=== PATIENT | male | born 1980 | race Native Hawaiian/Other Pacific Islander ===

== ENCOUNTER 2022-03-28 12:56 | Inpatient (IN) | payer BC, OTHER ==
[2022-03-28] MEDS ORDERED: SODIUM CHLORIDE 0.9% 1,000 ML IV STA (17:50)
[2022-03-28] MEDS ORDERED: THIAMINE 100 MG/ML 2 ML VIAL IM STA (17:50)
[2022-03-28] MEDS ORDERED: PHENobarbital SODIUM 130 MG/ML 1 ML VIAL IM STA (17:52)
[2022-03-28] MEDS ORDERED: LORazepam 2 MG/ML INJ IV STA (17:52)
--- NOTE | 2022-03-28 17:57 | ED ---
General Adult HPI - General Chief complaint: Alcohol Stated complaint: Withdrawl Time Seen by Provider: 03/28/22 17:20 Source: patient, RN notes reviewed Mode of arrival: ambulatory Limitations: language barrier - History of Present Illness Initial comments: Patient is a pleasant 41-year-old male presenting to the emergency department with concerns for alcohol withdrawal. Last drink was around 24 hours ago. Patient feels shaky and nauseated. Patient talked with who recommended he come to the emergency department. Patient admits to daily drinking around 25 years per day. No hallucinations however patient has had previously with withdrawal. - Related Data Home Medications Medication Instructions Recorded Confirmed HYDROcodone/APAP 7.5-325MG [[place] 1 tab PO Q4H PRN 05/01/16 05/02/16 7.5-325] Previous Rx's Medication Instructions Recorded Ibuprofen [Motrin] 600 mg PO Q6HR PRN #40 day 04/23/16 Aspirin 325 mg PO BID #30 tab 05/02/16 Docusate [Colace] 100 mg PO BID #60 capsule 05/02/16 HYDROcodone/APAP 7.5-325MG [[place] 1 - 2 each PO Q6HR PRN #90 tab 05/02/16 7.5] Allergies Allergy/AdvReac Type Severity Reaction Status Date / Time No Known Allergies Allergy Verified 03/28/22 14:51 Review of Systems ROS Statement: Those systems with pertinent positive or pertinent negative responses have been documented in the HPI. ROS Other: All systems not noted in ROS Statement are negative. Constitutional: Denies: fever Eyes: Denies: eye pain ENT: Denies: ear pain Respiratory: Denies: cough Cardiovascular: Denies: chest pain Endocrine: Denies: fatigue Gastrointestinal: Reports: nausea Genitourinary: Denies: dysuria Musculoskeletal: Denies: back pain Skin: Denies: rash Neurological: Denies: weakness Past Medical History Past Medical History: Hyperlipidemia, Hypertension, Musculoskeletal Disorder Additional Past Medical History / Comment(s): NO TX FOR HTN. FX RT DISTAL FIBULA, History of Any Multi-Drug Resistant Organisms: None Reported Past Surgical History: No Surgical Hx Reported Past Anesthesia/Blood Transfusion Reactions: No Reported Reaction Past Psychological History: Anxiety, Depression, Panic Disorder Smoking Status: Current every day smoker Past Alcohol Use History: Abuse, Daily, Heavy Past Drug Use History: None Reported - Past Family History Mother Family Medical History: No Reported History General Exam Limitations: no limitations General appearance: alert, in no apparent distress, other (he does have mild resting tremor) Head exam: Present: normocephalic Eye exam: Present: normal appearance Neck exam: Present: normal inspection Respiratory exam: Present: normal lung sounds bilaterally Cardiovascular Exam: Present: regular rate, normal rhythm GI/Abdominal exam: Present: soft. Absent: tenderness Extremities exam: Present: normal inspection Neurological exam: Present: alert Psychiatric exam: Present: normal affect, normal mood Skin exam: Present: normal color Course Vital Signs 03/28/22 14:47 Temperature 97.9 F Pulse Rate 84 Respiratory 20 Rate Blood Pressure 150/88 O2 Sat by Pulse 98 Oximetry Medical Decision Making - Medical Decision Making Patient reevaluated without much improvement. Case discussed with Dr. Villeda who feels patient should be inpatient secondary to poli of 13 less than 24 hours. Patient reevaluated and updated. Dr. Winter's group has been paged for admission. - Lab Data Result diagrams: 03/28/22 20:32 03/28/22 20:32 Lab Results 03/28/22 03/28/22 Range/Units 20:32 20:32 WBC 5.5 (3.8-10.6) k/uL RBC 3.93 L (4.30-5.90) m/uL Hgb 14.1 (13.0-17.5) gm/dL Hct 42.3 (39.0-53.0) % MCV 107.7 H (80.0-100.0) fL MCH 35.9 H (25.0-35.0) pg MCHC 33.4 (31.0-37.0) g/dL RDW 12.8 (11.5-15.5) % Plt Count 124 L (150-450) k/uL MPV 8.5 Neutrophils % 70 % Lymphocytes % 20 % Monocytes % 5 % Eosinophils % 2 % Basophils % 2 % Neutrophils # 3.8 (1.3-7.7) k/uL Lymphocytes # 1.1 (1.0-4.8) k/uL Monocytes # 0.3 (0-1.0) k/uL Eosinophils # 0.1 (0-0.7) k/uL Basophils # 0.1 (0-0.2) k/uL Macrocytosis Moderate Sodium 133 L (137-145) mmol/L Potassium 3.7 (3.5-5.1) mmol/L Chloride 98 (98-107) mmol/L Carbon Dioxide 24 (22-30) mmol/L Anion Gap 11 mmol/L BUN 3 L (9-20) mg/dL Creatinine 0.48 L (0.66-1.25) mg/dL Est GFR (CKD-EPI)AfAm >90 (>60 ml/min/1.73 sqM) Est GFR (CKD-EPI)NonAf >90 (>60 ml/min/1.73 sqM) Glucose 119 H (74-99) mg/dL Calcium 9.4 (8.4-10.2) mg/dL Magnesium 2.1 (1.6-2.3) mg/dL Total Bilirubin 1.4 H (0.2-1.3) mg/dL AST 176 H (17-59) U/L ALT 72 H (4-49) U/L Alkaline Phosphatase 195 H (38-126) U/L Total Protein 9.1 H (6.3-8.2) g/dL Albumin 4.6 (3.5-5.0) g/dL Amylase 123 H (30-110) U/L Lipase 529 H (23-300) U/L Serum Alcohol <10 mg/dL Disposition Clinical Impression: Alcohol withdrawal syndrome Disposition: ADMITTED IP TO THIS HOSP Is patient prescribed a controlled substance at d/c from ED?: No Referrals: Debbi Swartz MD [Primary Care Provider] - 1-2 days Time of Disposition: 20:57
[2022-03-28 20:39] LABS: Basophils # (A) 0.1 k/uL (0-0.2); Basophils % (A) 2 %; Eosinophils # (A) 0.1 k/uL (0-0.7); Eosinophils % (A) 2 %; HCT 42.3 % (39.0-53.0); HGB 14.1 gm/dL (13.0-17.5); Lymphocytes # (A) 1.1 k/uL (1.0-4.8); Lymphocytes % (A) 20 %; MCH 35.9 pg (25.0-35.0); MCHC 33.4 g/dL (31.0-37.0); MCV 107.7 fL (80.0-100.0); Macrocytosis Moderate; Mean Platelet Volume 8.5; Monocytes # (A) 0.3 k/uL (0-1.0); Monocytes % (A) 5 %; Neutrophils # (A) 3.8 k/uL (1.3-7.7); Neutrophils % (A) 70 %; Platelet Count 124 k/uL (150-450); RBC 3.93 m/uL (4.30-5.90); RDW 12.8 % (11.5-15.5); WBC 5.5 k/uL (3.8-10.6)
[2022-03-28 20:49] LABS: ALT 72 U/L (4-49); AST 176 U/L (17-59); African American GFR (CKD) >90 (>60 ml/min/1.73 sqM); Albumin 4.6 g/dL (3.5-5.0); Alcohol <10 mg/dL; Alkaline Phosphatase 195 U/L (38-126); Amylase 123 U/L (30-110); Anion Gap 11 mmol/L; Blood Urea Nitrogen 3 mg/dL (9-20); Calcium 9.4 mg/dL (8.4-10.2); Carbon Dioxide 24 mmol/L (22-30); Chloride 98 mmol/L (98-107); Glucose 119 mg/dL (74-99); Lipase 529 U/L (23-300); Magnesium 2.1 mg/dL (1.6-2.3); Non-African American GFR(CKD) >90 (>60 ml/min/1.73 sqM); Potassium 3.7 mmol/L (3.5-5.1); Sodium 133 mmol/L (137-145); Total Bilirubin 1.4 mg/dL (0.2-1.3); Total Protein 9.1 g/dL (6.3-8.2)
[2022-03-28] MEDS ORDERED: ONDANSETRON 4 MG/2 ML VIAL IVP PRN (20:57)
[2022-03-28] MEDS ORDERED: NALOXONE 0.4 MG/ML 1 ML VIAL IV PRN (20:57)
[2022-03-28] MEDS: SODIUM CHLORIDE 0.9% 1,000 ML IV SCH (22:47)
[2022-03-29] MEDS ORDERED: PHENobarbitaL 16.2 MG TAB PO ONE ×3 (05:52→14:00)
[2022-03-29] MEDS: PANTOPRAZOLE 40 MG/10 ML VIAL IV SCH (10:05)
[2022-03-29] MEDS: THIAMINE 100 MG TAB PO SCH ×2 (11:48→17:23)
--- NOTE | 2022-03-29 17:10 | HP ---
HISTORY AND PHYSICAL CHIEF COMPLAINTS: Alcohol withdrawal. HISTORY OF PRESENT ILLNESS: This 41-year-old gentleman with a past medical history of hypertension, hyperlipidemia, was admitted to [facility] with alcohol withdrawal symptoms. The patient did not take alcohol for 24 hours. Patient was shaky and nauseated and the patient was previously to rehab and the patient admitted to the hospital for further evaluation and treatment. The patient was started on protocol because of Ativan shortage apparently. There is no history of fever, rigors or chills. PAST MEDICAL HISTORY: History of hypertension, hyperlipidemia. MEDICATIONS: None. ALLERGIES: None. FAMILY HISTORY: No history of heart disease or strokes in the family. SOCIAL HISTORY: History of EtOH and smoking. REVIEW OF SYSTEMS: 14-point review is negative except as mentioned earlier. PHYSICAL EXAMINATION: Pulse 61, blood pressure 123/95, respiration 18. HEENT: Conjunctivae normal. NECK: No JVD. CARDIOVASCULAR: S1, S2. RESPIRATION: Breath sounds diminished in the bases. A few scattered rhonchi. No crackles. ABDOMEN: Soft. LEGS: No edema. No swelling. NERVOUS SYSTEM: Diffusely weak and tremors. SKIN: No ulcer, rash or bleeding. JOINTS: No active deforming arthropathy. LABS: Reviewed. CBC noted. LFTs noted. ASSESSMENT: 1. Acute alcohol withdrawal and acute delirium tremens. 2. Hypertension. 3. Hyperlipidemia. RECOMMENDATIONS AND DISCUSSION: This 41-year-old gentleman who presented with multiple complex medical issues at this time I recommend Librium. Repeat labs. Guarded prognosis because of multiple complex medical conditions. Further recommendations to follow. See orders for details. I would also recommend outpatient rehab as well. MMODL / IJN: [id number] / MTDD
[2022-03-29] MEDS: SODIUM CHLORIDE 0.9% 1,000 ML IV SCH (17:22)
[2022-03-29] MEDS: cloNIDine HCL 0.1 MG TAB PO SCH ×2 (17:23→21:44)
[2022-03-30 07:40] VITALS: RESP 18
[2022-03-30] MEDS: cloNIDine HCL 0.1 MG TAB PO SCH (07:40)
[2022-03-30] MEDS: PANTOPRAZOLE 40 MG/10 ML VIAL IV SCH (08:16)
[2022-03-30] MEDS: THIAMINE 100 MG TAB PO SCH (11:50)
[2022-03-30 14:33] VITALS: BP 106/64; PULSE 74; TEMP 97.8
[2022-03-31] MEDS ORDERED: PANTOPRAZOLE 40 MG TABLET PO SCH (07:30)
--- NOTE | 2022-04-02 04:54 | P.DS ---
Providers Date of admission: 03/28/22 20:57 Expected date of discharge: 03/30/22 Attending physician: Inge Winter Primary care physician: Debbi Swartz Hospital Course: Final Diagnosis acute alcohol withdrawal and acute delirium tremens hypertension hyperlipidemia GI prophylaxis full code Discharge disposition Patient is being discharged in a stable condition with guarded prognosis to home. Patient will follow-up with Dr. Debbi Swartz in the outpatient setting upon discharge. Patient is to continue Librium taper and also clonidine on discharge. Recommend alcohol rehab and H follow up. Total time taken is greater than 35 minutes. Hospital course This is a 41-year-old male admitted with acute alcohol withdrawal and placed on phenobarb protocol and closely monitored. Librium taper also started and will continue with a taper on discharge. Patient also started on clonidine and will continue as well. Encouraged [facility] and psychiatry follow up and alcohol rehab. at the bedside and concerned he will relapse. Encouraged follow up with DR. Swartz this week and a copy of this dictation will be sent. Currently no reports of chest pain, shortness of breath, or palpitations. Patient is afebrile. No reports of nausea or vomiting and patient is tolerating diet. Patient will be discharged home today. guarded prognosis. On exam vital signs are stable. Cardio S1, S2 are muffled. Respiratory system shows diminished breath sounds at the bases with no wheezing or rhonchi noted. Abdomen is soft and nontender. Nervous system shows no focal deficits. Please refer to medication reconciliation sheet for a list of medications. The impression and plan of care has been dictated by Alessia Salvador, Nurse Practitioner as directed. Dr. Moy MD I have performed a history and examination and MDM of this patient, discussed the same with the dictator, and agree with the dictator's assessment and plan as written ,documented as a scribe. Based on total visit time, I have performed more than 50% of the visit. Patient Condition at Discharge: Stable Plan - Discharge Summary New Discharge Prescriptions: New Thiamine [Vitamin B-1] 100 mg PO BID@1200,1700 30 Days #60 tab chlordiazePOXIDE HCl [Librium] 25 mg PO QID 3 Days #12 capsule cloNIDine HCL [Catapres] 0.1 mg PO BID 30 Days #60 tab Discharge Medication List Thiamine [Vitamin B-1] 100 mg PO BID@1200,1700 30 Days #60 tab 03/30/22 [Rx] chlordiazePOXIDE HCl [Librium] 25 mg PO QID 3 Days #12 capsule 03/30/22 [Rx] cloNIDine HCL [Catapres] 0.1 mg PO BID 30 Days #60 tab 03/30/22 [Rx] Follow up Appointment(s)/Referral(s): Debbi Swartz MD [Primary Care Provider] - 04/12/22 2:40 pm (with MILES Ramsey) Patient Instructions/Handouts: Alcohol Intoxication (DC), Alcohol Withdrawal (DC) Activity/Diet/Wound Care/Special Instructions: Activity Limited until follow-up Follow-up with primary care provider on discharge Continue taking medications as prescribed Continue with Librium taper and avoid all alcohol intake Follow-up with community mental health and psychiatric services Recommend inpatient alcohol rehab Continue current diet Discharge Disposition: HOME SELF-CARE
== END 2022-03-30 15:07 | disposition home or self-care (01) | DRG 897 ==
LOC: EC 12:56 → 4SSUR 20:57
PROVIDERS: ADMIT Hospitalist; ATTEND Hospitalist
DX: F10.231 Alcohol dependence with withdrawal delirium (principal); E78.5 Hyperlipidemia, unspecified; F17.210 Nicotine dependence, cigarettes, uncomplicated; F41.0 Panic disorder [episodic paroxysmal anxiety]; I10 Essential (primary) hypertension; M62.9 Disorder of muscle, unspecified; Z79.82 Long term (current) use of aspirin; F41.9 Anxiety disorder, unspecified; F32.A Depression, unspecified; Y90.0 Blood alcohol level of less than 20 mg/100 ml
CPT/HCPCS: 36415; 80053; 80320; 82150; 83690; 83735; 85025; 96361; 96372; 96374; 96375; 99282

== ENCOUNTER 2022-08-16 17:02 | Inpatient (IN) | payer OTHER ==
[2022-08-16] MEDS ORDERED: LORazepam 1 MG TAB PO PRN ×3 (17:41)
[2022-08-16 17:57] LABS: Basophils % (A) 1 %; Eosinophils # (A) 0.1 k/uL (0-0.7); Eosinophils % (A) 1 %; HCT 39.8 % (39.0-53.0); HGB 14.1 gm/dL (13.0-17.5); Lymphocytes # (A) 1.6 k/uL (1.0-4.8); Lymphocytes % (A) 27 %; MCH 34.9 pg (25.0-35.0); MCHC 35.3 g/dL (31.0-37.0); MCV 98.9 fL (80.0-100.0); Mean Platelet Volume 8.3; Monocytes # (A) 0.3 k/uL (0-1.0); Monocytes % (A) 5 %; Neutrophils % (A) 65 %; Platelet Count 135 k/uL (150-450); RBC 4.03 m/uL (4.30-5.90); RDW 13.3 % (11.5-15.5); WBC 6.1 k/uL (3.8-10.6)
[2022-08-16] MEDS ORDERED: SODIUM CHLORIDE 0.9% 1,000 ML with THIAMINE 100 MG, FOLIC ACID 1 MG IV ONE ×3 (18:00)
[2022-08-16 18:14] LABS: ALT 59 U/L (4-49); AST 113 U/L (17-59); African American GFR (CKD) >90 (>60 ml/min/1.73 sqM); Alkaline Phosphatase 150 U/L (38-126); Anion Gap 12 mmol/L; Blood Urea Nitrogen 6 mg/dL (9-20); Carbon Dioxide 23 mmol/L (22-30); Chloride 101 mmol/L (98-107); Glucose 97 mg/dL (74-99); Non-African American GFR(CKD) >90 (>60 ml/min/1.73 sqM); Sodium 136 mmol/L (137-145); Total Bilirubin 0.9 mg/dL (0.2-1.3); Total Protein 9.2 g/dL (6.3-8.2)
[2022-08-16] MEDS ORDERED: ONDANSETRON 4 MG/2 ML VIAL IVP STA (18:31)
[2022-08-16 18:50] LABS: Alcohol 137 mg/dL
--- NOTE | 2022-08-16 19:00 | XR ---
EXAMINATION TYPE: XR ribs RT w pa chest xray DATE OF EXAM: 08/16/2022 6:51 PM INDICATION: Patient age:Male; 42 years old; Reason for study: bruising, pain; COMPARISON: None TECHNIQUE: Frontal and oblique views of the right ribs with frontal chest radiograph. FINDINGS: The ribs have a normal appearance. No evidence of fracture. Overall, the lungs are clear. The cardiac silhouette is normal in size. The remaining osseous structures are intact. IMPRESSION RIBS: No acute osseous pathology.
[2022-08-16] MEDS: LORazepam 1 MG TAB PO PRN (19:36)
--- NOTE | 2022-08-16 19:43 | US ---
EXAMINATION TYPE: US abdomen limited DATE OF EXAM: 08/16/2022 COMPARISON: NONE CLINICAL HISTORY: RUQ pain. RUQ pain x 1 day TECHNIQUE: Multiple sonographic images of the right upper quadrant are obtained. FINDINGS: EXAM MEASUREMENTS: Liver Length: 15.3 cm Gallbladder Wall: 0.15 cm CBD: 0.32 cm Right Kidney: 10.4 x 4.2 x 4.3 cm FREIGHT LOADING SUPERVISOR NOTES: Pancreas: Obscured by bowel gas Liver: Increased attenuation, decreased visualization of vessels suggestive of fatty infiltrate Gallbladder: wnl Evidence for sonographic Llanos's sign: No CBD: wnl Right Kidney: wnl IMPRESSION: No evidence of acute process.
[2022-08-16] MEDS ORDERED: KETOROLAC 15 MG/ML 1 ML VIAL IVP STA (19:47)
[2022-08-16] MEDS ORDERED: LIDOCAINE 5% PATCH TOPICAL SCH (20:00)
[2022-08-16 20:20] LABS: Partial Thromboplastin Time 26.9 sec (22.0-30.0); Prothrombin Time 11.2 sec (9.0-12.0)
[2022-08-16] MEDS ORDERED: NALOXONE 0.4 MG/ML 1 ML VIAL IV PRN (20:26)
--- NOTE | 2022-08-16 21:33 | ED ---
Alcohol HPI - General Chief Complaint: Alcohol Stated Complaint: Withdrawl Time Seen by Provider: 08/16/22 17:41 Source: patient Mode of arrival: ambulatory Limitations: no limitations - History of Present Illness Initial Comments: Patient is a 42-year-old male with alcohol use disorder who presents to the emergency department with chief complaint of withdrawal. Patient is trying to quit. His last drink was last night around 9 PM. Patient reports drinking a case of beer every night since he was 17. He did quit this past March during which he was treated at [facility] for [facility] for alcohol withdrawal however relapsed shortly after. Patient currently reports nausea and abdominal pain. states the abdominal pain was evaluated at [facility] yesterday. Pain is in the right side and to a lesser extent, right upper abdomen. States abdominal CT was normal. Patient has pain in his right upper abdomen. states it is possibly due to fall as he has bruising on his right side although patient does not remember falling. He denies head trauma and blood thinner use. He denies fever, chills, vomiting, diarrhea, blood in stool. No chest pain and shortness of breath. Denies history of blood disorder. Denies tobacco use and illicit drug use. - Related Data Home Medications Medication Instructions Recorded Confirmed No Known Home Medications 08/16/22 08/16/22 Allergies Allergy/AdvReac Type Severity Reaction Status Date / Time No Known Allergies Allergy Verified 08/16/22 20:54 Review of Systems ROS Statement: Those systems with pertinent positive or pertinent negative responses have been documented in the HPI. ROS Other: All systems not noted in ROS Statement are negative. Past Medical History Past Medical History: Hyperlipidemia, Hypertension, Musculoskeletal Disorder Additional Past Medical History / Comment(s): NO TX FOR HTN. FX RT DISTAL FIBULA, History of Any Multi-Drug Resistant Organisms: None Reported Past Surgical History: No Surgical Hx Reported Past Anesthesia/Blood Transfusion Reactions: No Reported Reaction Past Psychological History: Anxiety, Depression, Panic Disorder Smoking Status: Current every day smoker Past Alcohol Use History: Abuse, Daily, Heavy Past Drug Use History: None Reported - Past Family History Mother Family Medical History: No Reported History, Diabetes Mellitus General Exam Limitations: no limitations General appearance: alert, in no apparent distress Head exam: Present: atraumatic, normocephalic, normal inspection Eye exam: Present: normal appearance, PERRL, EOMI. Absent: scleral icterus, conjunctival injection, periorbital swelling ENT exam: Present: other (Tongue fasciculations) Respiratory exam: Present: normal lung sounds bilaterally, other (Ecchymosis right ribs). Absent: respiratory distress, wheezes, rales, rhonchi, stridor Cardiovascular Exam: Present: regular rate, normal rhythm, normal heart sounds. Absent: systolic murmur, diastolic murmur, rubs, gallop, clicks GI/Abdominal exam: Present: soft, normal bowel sounds. Absent: distended, tenderness, guarding, rebound, rigid Extremities exam: Present: other (Bilateral hand tremors) Back exam: Absent: paraspinal tenderness, vertebral tenderness Neurological exam: Present: alert, oriented X3, CN II-XII intact Psychiatric exam: Present: normal affect, normal mood Skin exam: Present: warm, dry, intact, normal color. Absent: rash Course Vital Signs 08/16/22 08/16/22 08/16/22 17:15 18:52 19:39 Temperature 97.0 F L Pulse Rate 98 66 82 Respiratory 18 18 18 Rate Blood Pressure 144/90 126/73 128/79 O2 Sat by Pulse 97 99 98 Oximetry Medical Decision Making - Medical Decision Making This is a 42-year-old male presenting with alcohol withdrawal. Tongue fasciculations and bilateral hand tremors noted.Blood pressure within acceptable limits. No tachycardia. CIWA score is 9. Ativan given. Laboratory studies obtained and are significant for mildly elevated liver enzymes, actually improved from prior. Serum alcohol 137. Other laboratory studies were relatively unremarkable. Abdominal ultrasound limited obtained and interpreted by me which is negative for acute process. Chest x-ray with right ribs obtained and interpreted by me which is negative for fracture. Pain likely related to contusion of the right ribs. Results discussed with patient and . With stable vitals it is reasonable for patient to go home with Ativan for withdrawal with strict return parameters. is very nervous about patient going home as he has history of hallucinations, seizure, and aggressive behavior related to withdrawal. Case discussed with Dr. Antony who accepts admission. Dr. Chapman is my attending. - Lab Data Result diagrams: 08/16/22 17:47 08/16/22 17:47 Lab Results 11/16/22 11/16/22 11/16/22 Range/Units 17:47 17:47 19:49 WBC 6.1 (3.8-10.6) k/uL RBC 4.03 L (4.30-5.90) m/uL Hgb 14.1 (13.0-17.5) gm/dL Hct 39.8 (39.0-53.0) % MCV 98.9 (80.0-100.0) fL MCH 34.9 (25.0-35.0) pg MCHC 35.3 (31.0-37.0) g/dL RDW 13.3 (11.5-15.5) % Plt Count 135 L (150-450) k/uL MPV 8.3 Neutrophils % 65 % Lymphocytes % 27 % Monocytes % 5 % Eosinophils % 1 % Basophils % 1 % Neutrophils # 4.0 (1.3-7.7) k/uL Lymphocytes # 1.6 (1.0-4.8) k/uL Monocytes # 0.3 (0-1.0) k/uL Eosinophils # 0.1 (0-0.7) k/uL Basophils # 0.0 (0-0.2) k/uL PT 11.2 (9.0-12.0) sec INR 1.0 (<1.2) APTT 26.9 (22.0-30.0) sec Sodium 136 L (137-145) mmol/L Potassium 4.0 (3.5-5.1) mmol/L Chloride 101 (98-107) mmol/L Carbon Dioxide 23 (22-30) mmol/L Anion Gap 12 mmol/L BUN 6 L (9-20) mg/dL Creatinine 0.50 L (0.66-1.25) mg/dL Est GFR (CKD-EPI)AfAm >90 (>60 ml/min/1.73 sqM) Est GFR (CKD-EPI)NonAf >90 (>60 ml/min/1.73 sqM) Glucose 97 (74-99) mg/dL Calcium 9.0 (8.4-10.2) mg/dL Total Bilirubin 0.9 (0.2-1.3) mg/dL AST 113 H (17-59) U/L ALT 59 H (4-49) U/L Alkaline Phosphatase 150 H (38-126) U/L Total Protein 9.2 H (6.3-8.2) g/dL Albumin 5.0 (3.5-5.0) g/dL Serum Alcohol 137 mg/dL Disposition Clinical Impression: Alcoholic intoxication, Alcohol withdrawal Disposition: ADMITTED IP TO THIS HOSP Condition: Fair Referrals: Debbi Swartz MD [Primary Care Provider] - 1-2 days
[2022-08-16] MEDS: LORazepam 0.5 MG TAB PO PRN (23:47)
[2022-08-17] MEDS: LORazepam 0.5 MG TAB PO PRN ×2 (05:06→08:32)
[2022-08-17] MEDS: SODIUM CHLORIDE 0.9% 1,000 ML IV SCH ×2 (08:27→11:38)
[2022-08-17] MEDS: LORazepam 1 MG TAB PO PRN (20:31)
[2022-08-18] MEDS: LORazepam 0.5 MG TAB PO PRN (00:28)
[2022-08-18 04:16] VITALS: TEMP 98.1
[2022-08-18] MEDS: SODIUM CHLORIDE 0.9% 1,000 ML IV SCH (06:31)
--- NOTE | 2022-08-18 08:30 | P.HPIM ---
History of Present Illness H&P Date: 08/18/22 History of Presenting Illness: Patient is a very pleasant 42-year-old male with a past medical history of daily alcohol abuse reporting drinking a minimum of one case of beer every single night for the past 25 years starting at the age of 17. Patient reports he did attempt quitting back in March and was successful for approximately one month before relapsing. Patient presented to the hospital with a chief complaint of withdrawal symptoms. Patient reports it had been 3 days since his last drink. He denied having any. Headache, lightheadedness, dizziness, changes in vision or hearing, chest pain or palpitations, shortness of breath, abdominal pain, nausea, vomiting, or experiencing any numbness/tingling/weakness in his extremities. Patient did report previously having pain in his right upper quadrant status post a fall on his right side in which she was seen and fully evaluated for at [facility] on 08/15/[address] and underwent an abdominal CT and was reported it was normal. In the emergency department patient underwent full evaluation. Serum alcohol 137. CBC revealing mild thrombocytopenia with platelet count of 135 and CMP revealing transaminitis with AST of 113, ALT 59, alkaline phosphatase of 150 (this appears to be baseline liver function when compared to labs drawn in March 2022). Abdominal ultrasound revealing increased potential relation of liver suggestive of fatty infiltrate, but negative for acute intra-abdominal process. X-ray right ribs negative for acute process showing no evidence of fracture. Patient admitted under our services. Review of systems: Pertinent positives and negatives as discussed in HPI, a complete review of systems was performed and all other systems are negative. Physical exam: Vital signs reviewed and stable. General: Nontoxic, no distress and appears stated age. Derm: Skin warm and dry, normal coloration for ethnicity. Head: Atraumatic, normocephalic and symmetric. Eyes: EOMs intact, no lid lag, and anicteric sclera Mouth: no lip lesions, mucus membranes moist Cardiovascular: regular rate and rhythm with normal S1S2, no murmur, positive posterior tibial pulses bilaterally, and cap refill < 2 seconds. Lungs: Respirations even, regular, and unlabored on room air. Lungs CTA bilaterally, no rhonchi, no rales, no wheezing, and no accessory muscle usage. Abdominal: soft, nontender to palpation, no guarding, no appreciable organo megaly Ext: ROM intact. No gross muscle atrophy, no edema, no contractures Neuro: Speech clear, face symmetrical and CN II-XII grossly intact with no noted focal neuro deficits Psych: Alert and oriented to person, place, time, and situation. Appropriate and pleasant affect. Assessment and Plan of Care: Alcohol withdrawal and active alcoholic Thrombocytopenia, chronic likely secondary to daily alcohol use Transaminitis, appears chronic secondary to chronic daily alcohol use Hyperbilirubinemia secondary to alcohol abuse -[facility] Protocol with symptom triggered medication management with benzodiazepines. -Abdominal ultrasound revealing increased potential relation of liver suggestive of fatty infiltrate, but negative for acute intra-abdominal process. -X-ray right ribs negative for acute process showing no evidence of fracture -Thiamine 100 mg twice a day -Multivitamin daily -Folate 1 mg daily -Seizure, fall, aspiration, and elopement precautions in place. -Urine drug screen -Continued close monitoring of electrolytes and replace as needed. -Telemetry monitoring. João Sam HAND OR MACHINE PASTER rendered care for this patient independently, reviewed the findings and plan as documented in the note above. I did not physically speak with or examine the patient on this date. CODE STATUS: Full code Discussed with: Pt and RN Anticipated discharge date: Within the next [address]: Home A total of 40 minutes was spent on the care of this complex patient more than 50% of the time was spent in counseling and care coordination. Past Medical History Past Medical History: Hyperlipidemia, Hypertension, Musculoskeletal Disorder Additional Past Medical History / Comment(s): NO TX FOR HTN. FX RT DISTAL FIBULA, History of Any Multi-Drug Resistant Organisms: None Reported Past Surgical History: Orthopedic Surgery Additional Past Surgical History / Comment(s): Right ankle with hardwear Past Anesthesia/Blood Transfusion Reactions: No Reported Reaction Past Psychological History: Anxiety, Depression, Panic Disorder Smoking Status: Current every day smoker Past Alcohol Use History: Abuse, Daily, Heavy Additional Past Alcohol Use History / Comment(s): SMOKES one pack CIGARETTES DAILY, SINCE AGE 20. DRINKS two 12 PACK BEER DAILY. Past Drug Use History: None Reported - Past Family History Mother Family Medical History: No Reported History, Diabetes Mellitus Medications and Allergies Home Medications Medication Instructions Recorded Confirmed Type Folic Acid 1 mg PO DAILY 30 Days #30 tab 08/18/22 Rx Multivitamins, Thera [Multivitamin 1 each PO DAILY 30 Days #30 tab 08/18/22 Rx (formulary)] Thiamine [Vitamin B-1] 100 mg PO DAILY 30 Days #30 tab 08/18/22 Rx hydrOXYzine HCL [Atarax] 50 mg PO QID PRN #120 tab 08/18/22 Rx Allergies Allergy/AdvReac Type Severity Reaction Status Date / Time No Known Allergies Allergy Verified 08/16/22 20:54 Physical Exam Osteopathic Statement: *. No significant issues noted on an osteopathic structural exam other than those noted in the History and Physical/Consult. Vitals: Vital Signs Temp Pulse Resp BP Pulse Ox 08/18/22 04:00 98.1 F 77 12 130/79 99 08/18/22 00:00 98.2 F 60 12 139/72 99 08/17/22 21:14 16 08/17/22 20:38 97.2 F L 84 16 173/92 98 08/17/22 17:54 98.2 F 89 18 150/83 99 08/17/22 15:41 98.9 F 74 141/82 97 08/17/22 11:37 82 17 123/72 100 Intake and Output 08/17/22 08/18/22 08/18/22 22:59 06:59 14:59 Intake Total 540 118 Balance 540 118 Intake: Oral 540 118 Other: Voiding Method Toilet Toilet # Voids 2 3 Results CBC & Chem 7: 08/18/22 08:51 08/18/22 08:51 Thrombosis Risk Factor Assmnt - Choose All That Apply Any of the Below Risk Factors Present?: No Other Risk Factors: No Other congenital or acquired thrombophilia - If yes, enter type in comment: No Thrombosis Risk Factor Assessment Level: Very Low Risk
[2022-08-18] MEDS ORDERED: LIDOCAINE 5% PATCH TOPICAL SCH (09:00)
[2022-08-18 09:08] VITALS: BP 148/88; PULSE 97; RESP 16
[2022-08-18 09:26] LABS: HCT 40.7 % (39.0-53.0); HGB 13.9 gm/dL (13.0-17.5); MCH 34.4 pg (25.0-35.0); MCHC 34.3 g/dL (31.0-37.0); MCV 100.3 fL (80.0-100.0); Platelet Count 125 k/uL (150-450); RBC 4.05 m/uL (4.30-5.90); RDW 12.9 % (11.5-15.5); WBC 4.3 k/uL (3.8-10.6)
[2022-08-18 09:36] LABS: ALT 51 U/L (4-49); AST 95 U/L (17-59); African American GFR (CKD) >90 (>60 ml/min/1.73 sqM); Albumin 4.7 g/dL (3.5-5.0); Alkaline Phosphatase 127 U/L (38-126); Anion Gap 12 mmol/L; Blood Urea Nitrogen 6 mg/dL (9-20); Carbon Dioxide 22 mmol/L (22-30); Chloride 101 mmol/L (98-107); Glucose 165 mg/dL (74-99); Non-African American GFR(CKD) >90 (>60 ml/min/1.73 sqM); Potassium 3.8 mmol/L (3.5-5.1); Sodium 135 mmol/L (137-145); Total Bilirubin 1.5 mg/dL (0.2-1.3); Total Protein 8.4 g/dL (6.3-8.2)
[2022-08-18] MEDS ORDERED: MULTIVITAMINS, THERA 1 EACH TAB PO SCH (09:45)
[2022-08-18] MEDS ORDERED: THIAMINE 100 MG TAB PO SCH (09:45)
[2022-08-18] MEDS ORDERED: FOLIC ACID 1 MG TAB PO SCH (09:45)
--- NOTE | 2022-08-18 10:01 | P.DS ---
Providers Date of admission: 08/16/22 21:35 Expected date of discharge: 08/18/22 Attending physician: Alejandra Antony MD Primary care physician: Debbi Swartz Hospital Course: Discharge Diagnosis: Alcohol withdrawal in an active alcoholic Thrombocytopenia, chronic likely secondary to daily alcohol abuse Transaminitis, appears chronic secondary to chronic daily alcohol abuse Hyperbilirubinemia secondary to alcohol abuse Hospital Course: Patient is a very pleasant 42-year-old male with a past medical history of daily alcohol abuse reporting drinking a minimum of one case of beer every single night for the past 25 years starting at the age of 17. Patient reports he did attempt quitting back in March and was successful for approximately one month before relapsing. Patient presented to the hospital with a chief complaint of withdrawal symptoms. Patient reports it had been 3 days since his last drink. He denied having any. Headache, lightheadedness, dizziness, changes in vision or hearing, chest pain or palpitations, shortness of breath, abdominal pain, nausea, vomiting, or experiencing any numbness/tingling/weakness in his extremities. Patient did report previously having pain in his right upper quadrant status post a fall on his right side in which she was seen and fully evaluated for at [facility] on 08/15/[address] and underwent an abdominal CT and was reported it was normal. In the emergency department patient underwent full evaluation. Serum alcohol 137. CBC revealing mild thrombocytopenia with maisha telet count of 135 and CMP revealing transaminitis with AST of 113, ALT 59, alkaline phosphatase of 150 (this appears to be baseline liver function when compared to labs drawn in March 2022). Abdominal ultrasound revealing increased potential relation of liver suggestive of fatty infiltrate, but negative for acute intra-abdominal process. X-ray right ribs negative for acute process showing no evidence of fracture. Patient admitted under our services. Patient was placed on alcohol withdrawal protocol with symptom triggered medication management with benzodiazepines. Patient reports his symptoms of withdrawal are controlled and no longer having any tremors. Repeat labs with no significant changes. CBC revealed continued thrombocytopenia with platelet count of 125 again is chronic in nature as well as transaminitis with AST 95, ALT 51, and alkaline phosphatase of 127, and Total bili 1.5. Patient has had no Ativan for the past 12 hours and currently showing no signs/symptoms of withdrawal and denies having any complaints. He reports full resolution of previously reported right upper quadrant/rib pain and denies having any nausea, vomiting, shortness of breath, tremors, anxiety, or hallucinations. Vital signs stable. Patient medically stable for discharge. Patient reports his was given information on [place] and is making arrangements. Patient reports his plans on picking him up later this morning. Physical exam: Vital signs reviewed and stable. General: Nontoxic, no distress and appears stated age. Derm: Skin warm and dry, normal coloration for ethnicity. Ecchymosis right ribs. Head: Atraumatic, normocephalic and symmetric. Eyes: EOMs intact, no lid lag, and anicteric sclera Mouth: no lip lesions, mucus membranes moist Cardiovascular: regular rate and rhythm with normal S1S2, no murmur, positive posterior tibial pulses bilaterally, and cap refill < 2 seconds. Lungs: Respirations even, regular, and unlabored on room air. Lungs CTA bilaterally, no rhonchi, no rales, no wheezing, and no accessory muscle usage. Abdominal: soft, nontender to palpation, no guarding, no appreciable organomegaly Ext: ROM intact. No gross muscle atrophy, no edema, no contractures Neuro: Speech clear, face symmetrical and CN II-XII grossly intact with no noted focal neuro deficits Psych: Alert and oriented to person, place, time, and situation. Appropriate and pleasant affect. A total of 33 minutes of time were spent preparing this complex discharge summary. Pt was discharged on 08/18/22 at 9:59 AM. João Sam NP rendered care for this patient independently, reviewed the findings and plan as documented in the note above. I did not physically speak with or examine the patient on this date. Patient Condition at Discharge: Stable Plan - Discharge Summary New Discharge Prescriptions: New Folic Acid 1 mg PO DAILY 30 Days #30 tab Thiamine [Vitamin B-1] 100 mg PO DAILY 30 Days #30 tab Multivitamins, Thera [Multivitamin (formulary)] 1 each PO DAILY 30 Days #30 tab hydrOXYzine HCL [Atarax] 50 mg PO QID PRN #120 tab PRN Reason: Anxiety Discharge Medication List Folic Acid 1 mg PO DAILY 30 Days #30 tab 08/18/22 [Rx] Multivitamins, Thera [Multivitamin (formulary)] 1 each PO DAILY 30 Days #30 tab 08/18/22 [Rx] Thiamine [Vitamin B-1] 100 mg PO DAILY 30 Days #30 tab 08/18/22 [Rx] hydrOXYzine HCL [Atarax] 50 mg PO QID PRN #120 tab 08/18/22 [Rx] Follow up Appointment(s)/Referral(s): Debbi Swartz MD [Primary Care Provider] - 1-2 days (call office for appt) Activity/Diet/Wound Care/Special Instructions: Activity: As tolerated. Take breaks as needed. Diet: Heart healthy and carb consistent diet. Avoid salts, or foods with hidden salts such as canned or boxed foods and frozen dinners. Extra salt makes your heart work harder and traps the fluid in your body for longer. Special Instructions: Take all of your medications as directed and remember to keep all of your doctor's appointments and follow-up as needed. It is very important to refrain from any use of alcohol. I wish you the best of luck on your journey towards sobriety, it is going to be difficult but definitely worth accomplishing for yourself, your , your 4 children, and your beautiful grandson. Thank you for allowing us to participate in your care, it was truly a pleasure having you for our patient!!! Discharge/Stand Alone Forms: AA Meetings [facility], Who Do I Call?, Community Resources, Outpatient Counseling, Inp Substance Abuse Facilities, Personal Bleach Tester Discharge Disposition: HOME SELF-CARE
== END 2022-08-18 11:27 | disposition home or self-care (01) | DRG 897 ==
LOC: EC 17:02 → 3SCARD 21:35
PROVIDERS: ADMIT Internal Medicine; ATTEND Internal Medicine
DX: F10.239 Alcohol dependence with withdrawal, unspecified (principal); R17 Unspecified jaundice; F10.229 Alcohol dependence with intoxication, unspecified; D69.59 Other secondary thrombocytopenia; E78.5 Hyperlipidemia, unspecified; S20.211A Contusion of right front wall of thorax, initial encounter; F17.210 Nicotine dependence, cigarettes, uncomplicated; R25.3 Fasciculation; Y90.6 Blood alcohol level of 120-199 mg/100 ml; R74.01 Elevation of levels of liver transaminase levels; T51.0X1A Toxic effect of ethanol, accidental (unintentional), initial encounter
CPT/HCPCS: 36415; 76705; 80053; 80320; 83735; 85025; 85027; 85610; 85730; 96361; 96374; 99285

== ENCOUNTER 2024-05-20 07:00 | Inpatient (IN) | payer OTHER ==
[~2024-05-20 07:00] MED LIST: FOLIC ACID 5 MG/ML 10 ML VIAL ONE; LORazepam 2 MG/ML INJ ONE; MVI, ADULT NO.4 WITH VIT K 10 ML VIAL IV ONE; SODIUM CHLORIDE 0.9% 1,000 ML BAG ONE; THIAMINE 100 MG/ML 2 ML VIAL ONE
[2024-05-20] MEDS ORDERED: MULTIVITAMINS, THERA 1 EACH TAB ONE (13:30)
[2024-05-20] MEDS ORDERED: THIAMINE 100 MG TAB ONE (13:30)
[2024-05-20] MEDS ORDERED: FOLIC ACID 1 MG TAB ONE (13:31)
[2024-05-20] MEDS ORDERED: chlordiazePOXIDE 25 MG CAP ONE ×2 (13:32→21:17)
[2024-05-20] MEDS ORDERED: LORazepam 2 MG/ML INJ ONE (15:45)
[2024-05-21] MEDS ORDERED: FOLIC ACID 1 MG TAB ONE (07:29)
[2024-05-21] MEDS ORDERED: MULTIVITAMINS, THERA 1 EACH TAB ONE (07:29)
[2024-05-21] MEDS ORDERED: THIAMINE 100 MG TAB ONE (07:29)
[2024-05-21] MEDS ORDERED: chlordiazePOXIDE 25 MG CAP ONE ×3 (07:30→22:04)
[2024-05-22] MEDS ORDERED: MULTIVITAMINS, THERA 1 EACH TAB ONE (10:05)
[2024-05-22] MEDS ORDERED: FOLIC ACID 1 MG TAB ONE (10:06)
[2024-05-22] MEDS ORDERED: THIAMINE 100 MG TAB ONE (10:06)
[2024-05-22] MEDS ORDERED: chlordiazePOXIDE 25 MG CAP ONE (10:06)
--- NOTE | 2024-06-27 12:32 | XR ---
EXAM: XR Chest, 1 View CLINICAL HISTORY: Etoh weakness TECHNIQUE: Frontal view of the chest. COMPARISON: None FINDINGS: Hardware:None. Lungs/pleura:Normal. No focal consolidation. No pleural effusion or pneumothorax. Heart/mediastinum:Normal. No cardiomegaly. Soft tissues:Unremarkable. Bones:No acute fracture. Upper abdomen:Normal. IMPRESSION: No acute disease identified. Radiologist: Jared Zuleta M.D. Electronically Signed: 05/20/24 01:59 Study ready at 23:51 and initial results transmitted at 01:59 Results also transmitted to Film Room, Film Room @ [phone] (Fax MTDD
== END 2024-05-22 12:51 | disposition home or self-care (01) | DRG 897 ==
LOC: OR 07:00 → 4SSUR 07:01
PROVIDERS: ADMIT Internal Medicine; ATTEND Internal Medicine
DX: F10.129 Alcohol abuse with intoxication, unspecified (principal); Y90.8 Blood alcohol level of 240 mg/100 ml or more; Z71.41 Alcohol abuse counseling and surveillance of alcoholic; F10.139 Alcohol abuse with withdrawal, unspecified
CPT/HCPCS: 71045; 93005; 96361; 96374; 99285